=== PATIENT | female | born 1955 | race Caucasian/White ===

== ENCOUNTER → 2018-06-02 | Outpatient (CLI) | payer BC ==
[~2018-06-02] MED LIST: ACIPHEX20 MG PO; AMITRIPTYLINE H10 MG PO; AMLODIPINE BESYL5 MG PO; ARTHROTEC EC 71 EACH PO; ATIVAN0.5 MG PO; CARAFATE1 GM PO; CRESTOR10 MG PO; CYMBALTA30 MG PO; DEPAKOTE PO; DILTIAZEM 24HR120 MG PO; ELAVIL PO; HYDROCODON-ACE1 EA12 PO; IMITREX25 MG PO; METOPROLOL TART25 MG PO; NEURONTIN300 MG PO; NORCO 7.5-3251 EACH PO; PANTOPRAZOLE SO40 MG PO; PATANASE30.5 GM; RANITIDINE HCL150 MG PO; RELPAX40 MG PO; SEROQUEL200 MG PO; TRAZODONE HCL150 MG PO; TREXIMET 85-501 EACH PO; TRIZANIDINE PO; ULTRAM 50MG50 MG PO; ZETONNA6.1 GM PO; ZOFRAN8 MG PO; ZYRTEC10 M3 PO; [UNRECOGNIZED DRUG - OTHER]; [UNRECOGNIZED DRUG - REMARK]
--- NOTE | 2018-06-02 16:32 | Diagnostic Imaging Report ---
EXAM: FL BARIUM ENEMA DOUBLE CONTRAST INDICATION: Epigastric pain, colonoscopy performed however could not visualize proximal colon. COMPARISON: None available. 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 BARIUM ENEMA: The rectum was cannulated and double contrast barium and air administration performed. Exam is substantially limited due to patient inability to tolerate satisfactory contrast injection and air injection. The ascending colon is not well opacified. The proximal ascending colon and cecum is not visualized. The sigmoid colon is redundant and incompletely evaluated. There is sigmoid and descending colonic diverticulosis as well as scattered diverticulosis in the distal ascending colon. There is a normal caliber visualized colon. No definite mucosal abnormality in the visualized ascending, transverse, or descending colon. No mass is visualized. Per patient preference, the tube was removed prior to procedural completion. Fluoroscopy Time: 2.2 minutes Radiation dose: 176.9 mgy DAP IMPRESSION: Limited double contrast barium enema due to patient unable to tolerate colonic distension with contrast and air. No definite mucosal abnormality or mass is seen. However, given the incomplete evaluation of the ascending colon on colonoscopy and barium contrast study, a CT colonography may be considered for further evaluation. Signed by: Dr. Georgie Negrete MD on 06/02/2018 4:28 PM
== END ==
LOC: DX 11:21
PROVIDERS: ATTEND Internal Medicine Gastroenterology
DX: R10.13 Epigastric pain (principal); R12 Heartburn; R11.0 Nausea; R13.19 Other dysphagia; K59.00 Constipation, unspecified; Z12.11 Encounter for screening for malignant neoplasm of colon; Z86.010 Personal history of colon polyps
CPT/HCPCS: 74280

== ENCOUNTER 2018-07-18 17:01 | Emergency (ER) | payer BC ==
[~2018-07-18] VITALS: Ht 162.6 cm; Wt 63.0 kg
--- OUTSIDE RECORDS SUMMARY | 2018-07-18 17:04 | XMS REPORT ---
Author Author Rudy Robins Organization [employer] Address Unknown Phone Unavailable Care Team Providers Care Child Life Specialist Name Role Phone Rudy Robins CP Unavailable Allergies, Adverse Reactions, Alerts Substance Reaction Event Type Codeine itchy Drug Allergy Encounters Encounter Location Date Unknown Rudy Robins MD [place] Mar 11, 2014 Problems Problem Type Condition ICD-9 Code Onset Dates Condition Status Assessment Palpitations 785.1 Active Assessment Chest Pain 786.51 Active Assessment Tachycardia 785.0 Active Problem Tachycardia 785.0 Active Problem Palpitations 785.1 Active Problem Chest Pain 786.51 Active Problem GERD (gastroesophageal reflux disease) 530.81 Active Problem Anxiety 300.00 Active Problem Undiagnosed cardiac murmurs 785.2 Active Problem Benign hypertensive heart disease 402.10 Active Assessment Anxiety 300.00 Active Assessment GERD (gastroesophageal reflux disease) 530.81 Active Assessment Benign hypertensive heart disease 402.10 Active Assessment Undiagnosed cardiac murmurs 785.2 Active Medications Medication Code System Code Instructions Start Date End Date Status Dosage Amlodipine Besylate [facility] [address]-81 5 MG Orally Once a day Active 1 tablet Duloxetine HCl [facility] [address]-24 30 mg Orally Once a day Active 1 capsule Quetiapine Fumarate [facility] [address]-79 200 MG Orally Once a day Active 1 tablet at bedtime Sucralfate [facility] [address]-77 1 GM Orally Four times a day Active 1 tablet on an empty stomach Gabapentin [facility] [address]-07 300 MG Orally once a day Active 1 capsule Trazodone HCl [facility] [address]-85 150 MG Orally Once a day Active 1 tablet at bedtime Lorazepam [facility] [address]-42 0.5 MG Orally Twice a day Active 1 tablet at bedtime as needed Crestor [facility] [address]-86 10 MG Orally Once a day Active 1 tablet Rabeprazole Sodium [facility] [address]-38 20 mg Orally Twice a day Active 1 tablet Social History Social History Element Qualifiers Date Reported Smoking . Status Never Smoker Mar 30, 2014 Alcohol Use No. Mar 30, 2014 Alcohol Screening: No. Did you have a drink containing alcohol in the past year?: No, Points: 0, Interpretation: Negative Mar 30, 2014 Marital Status: . Mar 30, 2014 Do you drink alcohol? No. 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
--- OUTSIDE RECORDS SUMMARY | 2018-07-18 17:04 | XMS REPORT | Continuity of Care Document ---
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 Active Problem 12/14/2016 Rudy Robins MYLES Active Problem 12/14/2016 Rudy Robins GERD Active Problem 12/14/2016 Rudy Robins Anxiety Active Problem 12/14/2016 Rudy Robins Benign hypertensive heart disease Active Problem 12/14/2016 Rudy Robins Palpitations Active Diagnosis 04/03/2014 Rudy Robins Chest Pain Active Diagnosis 04/03/2014 Rudy Robins Tachycardia Active Diagnosis 04/03/2014 Rudy Robins GERD Active Problem 04/03/2014 Rudy Robins Anxiety Active Problem 04/03/2014 Rudy Robins Undiagnosed cardiac murmurs Active Problem 04/03/2014 Rudy Robins Benign hypertensive heart disease Active Problem 04/03/2014 Rudy Robins Medications Medication Details Route Status Patient Instructions Ordering Provider Order Date Source Diltiazem HCl ER 1 capsule Orally Active 120 MG Orally Once a day Julienne 02/21/2016 Rudy Robins Amlodipine Besylate 1 tablet Orally Active 5 MG Orally Once a day Julienne Robins Duloxetine HCl 1 capsule Orally Active 30 mg Orally Once a day Julienne Robins Quetiapine Fumarate 1 tablet at bedtime Orally Active 200 MG Orally Once a day Julienne Robins Sucralfate 1 tablet on an empty stomach Orally Active 1 GM Orally Four times a day Julienne Robins Gabapentin 1 capsule Orally Active 300 MG Orally once a day Julienne Robins Trazodone HCl 1 tablet at bedtime Orally Active 150 MG Orally Once a day Julienne Robins Lorazepam 1 tablet at bedtime as needed Orally Active 0.5 MG Orally Twice a day Julienne Robins Crestor 1 tablet Orally Active 10 MG Orally Once a day Julienne Robins Rabeprazole Sodium 1 tablet Orally Active 20 mg Orally Twice a day Julienne Robins Allergies, Adverse Reactions, Alerts Substance Category Reaction Severity Reaction type Status Date Reported Comments Source Codeine Adverse Reaction itchy Adverse Reaction Active 03/11/2014 Rudy Robins aspirin Assertion Drug allergy Active [facility] Celebrex Assertion Drug allergy Active [facility] codeine Assertion Drug allergy Active [facility] ibuprofen Assertion Drug allergy Active [facility] Naprosyn Assertion Drug allergy Active [facility] Vioxx Assertion Drug allergy Active [facility] Immunizations Immunization Date Given Site Status Last Updated Comments Source Results Order Name Results Value Reference Range Date Interpretation Comments Source Brain wo contrast MRI Brain wo contrast MRI Clinical Indication: - G43.719 Chronic migraine without aura, intractable, without status migrainosus Comparison: CT head dated 09/24/2016 TECHNIQUE: Multiplanar noncontrast enhanced MRI of the brain is performed on a 1.5 Heidi magnet. Contrast: None. FINDINGS: BRAIN PARENCHYMA: Stable appearance of a small to moderate size region of gliosis and encephalomalacia in the right parietal temporal lobe. Periventricular and deep white matter T2/FLAIR hyperintensity is noted, consistent with sequelae of chronic microvascular ischemia. There is no mass effect or midline shift. There is no extra-axial fluid collection or intraparenchymal hemorrhage. The corpus callosum appears normal. There is no diffusion weighted imaging or ADC map abnormality to suggest acute/subacute ischemia. There is no magnetic susceptibility to suggest recent or remote intracranial hemorrhage. CEREBELLOPONTINE REGIONS AND SKULL BASE: The cerebellopontine angles appear unremarkable. The skull base, craniocervical junction, and brainstem are normal. The optic chiasm is normal. The sellar and pineal regions are unremarkable. VENTRICLES: The ventricles are normal in size and configuration. The basilar cisterns are normal. VESSELS: The venous sinuses are grossly unremarkable. The expected intracranial flow voids are present. ORBITS, VISUALIZED PARANASAL SINUSES AND MASTOIDS: Status post bilateral lens replacement. The visualized orbits and paranasal sinuses are unremarkable. The mastoid air cells are clear. IMPRESSION: 1. No acute intracranial abnormalities. 2. Compared to 2013, stable small to moderate size region of gliosis and encephalomalacia in the right parietotemporal lobe. 3. Sequelae of mild chronic microvascular ischemia. SL: OTONEIL 05/05/2018 - - Read by: Mariano Zelaya MD Dictated Date/time: 05/05/18 11:59 Electronically Signed by: Mariano Zelaya MD 05/05/18 12:04 FINAL REPORT [facility] Foot 2 views DX Foot 2 views DX Patient Name: JACINDA CARD. : 1955; Age: 61 years y/o; Female. MR: [id number]. Ordering Physician: Apryl Linder MD. Left foot 3 views. HISTORY: Left foot injury with pain. COMPARISON: None. FINDINGS: Frontal, oblique and lateral views of the left foot was performed. [id number] 1st MTP joint space narrowing noted with minimal spurring. Varying degrees of interphalangeal joint space narrowing also noted involving the 2nd through 5th toes. No fracture or dislocation. Soft tissue is unremarkable. No ankle joint effusion. IMPRESSION: No evidence of left foot fracture or dislocation. Degenerative changes as described. SL: [id number] 08/07/2016 - - Read by: Víctor Rivas MD Dictated Date/time: 08/07/16 16:51 Electronically Signed by: Víctor Rivas MD 08/07/16 16:53 FINAL REPORT [facility] wo contrast CT Brain wo contrast CT CT head no contrast. TECHNIQUE: Contiguous transaxial images of the brain were performed without administration of IV contrast. FINDINGS: There is no evidence for parenchymal bleed, extra-axial collections, intracranial masses or midline shift. No displaced fractures of the calvarium or other significant bony abnormality is noted. Small area of encephalomalacia is present in the right parietal lobe suggestive of the previous infarct. No acute infarct is evident. The visualized paranasal sinuses and the mastoids are clear. IMPRESSION: No significant acute brain abnormality is noted. SL:13 09/24/2013 - - Read by: Steven Flores Dictated Date/time: 09/24/13 14:20 Electronically Signed by: Steven Flores MD 09/24/13 14:25 FINAL REPORT [facility] Sinus wo contrast CT Sinus wo contrast CT CT sinuses without contrast: COMPARISON: No priors Technique: Contiguous transaxial images were obtained through the paranasal sinuses without IV contrast. Coronal 2.5 mm images were generated from axial data. FINDINGS: Mild mucosal thickening is present at the base of the base of both maxillary sinuses. No air-fluid level is present in either maxillary sinus. Question small mucous retention cyst, base of right maxillary sinus anteriorly. Postoperative changes related to bilateral antrostomies are visualized. Both antrostomies are widely open. Remainder of the paranasal sinuses, including the frontal, ethmoid air cells, and the sphenoid sinuses are clear. The sphenoethmoidal recesses are patent. There is no significant septal deviation. The visualized portion of the mastoid air cells are clear. IMPRESSION: Mild changes of chronic sinusitis involving the base of both maxillary sinuses. Postsurgical change noted in both maxillary sinuses, as discussed above. Remainder of the paranasal sinuses are clear. SL:13 09/24/2013 - - Read by: Steven Flores Dictated Date/time: 09/24/13 14:36 Electronically Signed by: Steven Flores MD 09/24/13 14:54 FINAL REPORT [facility] Vital Signs Vital Sign Value Date Comments Source Weight 125 03/11/2014 Rudy Robins Height 63 03/11/2014 Rudy Robins Temperature Oral (F) 97.1 F 03/11/2014 Rudy Robins Heart Rate 111 03/11/2014 Rudy O Julienne Diastolic (mm Hg) 76 03/11/2014 Rudy O Julienne Systolic (mm Hg) 120 03/11/2014 Rudy Robins Encounters Location Location Details Encounter Type Encounter Number Reason For Visit Attending Provider ADM Date DC Date Status Source [facility] [id number] _[id number] Hipolito Adams 09/24/2013 09/25/2013 [facility] [id number] Hipolito Adams 12/03/2013 12/03/2013 [facility] Rudy Robins MD PA Unknown [id number] 03/11/2014 03/11/2014 Rudy Robins Outpatient [id number] APRYL LINDER 08/07/2016 Active [facility] Procedures Procedure Code Date Perfomer Comments Source
--- OUTSIDE RECORDS SUMMARY | 2018-07-18 17:04 | XMS REPORT | Summary of Care ---
Author Organization Unknown Address Unknown Phone Unavailable Encounter HQ Jaunntr_miguelina(RENALDO) [id number] Date(s): 12/02/13 - 12/02/13 [facility] [address] Discharge Disposition: Home Physician Attending: Hipolito Adams MD Physician_Referring: Hipolito Adams MD Reason for Visit SPLIT NIGHT-11826 Problem List No data available for this section Allergies, Adverse Reactions, Alerts Substance Reaction Severity Status aspirin Active Celebrex Active codeine Active ibuprofen Active Naprosyn Active Vioxx Active Medications No data available for this section Medications Administered During Your Visit No data available for this section Immunizations No data available for this section Social History Social History Type Response
--- OUTSIDE RECORDS SUMMARY | 2018-07-18 17:04 | XMS REPORT ---
Author Author Rudy Robins Organization [employer] Address Unknown Phone Unavailable Care Team Providers Care Access Lead Name Role Phone Rudy Robins CP Unavailable Allergies No Known Allergies Problems Problem Type Condition Code Onset Dates Condition Status Problem Encounter for pre-operative cardiovascular clearance Z01.810 Active Assessment Palpitation R00.2 Active Problem Allergic rhinitis, unspecified allergic rhinitis type J30.9 Active Problem LVH (left ventricular hypertrophy) due to hypertensive disease I11.9 Active Problem MYLES (dyspnea on exertion) R06.09 Active Problem GERD (gastroesophageal reflux disease) K21.9 Active Problem Anxiety F41.9 Active Problem Palpitation R00.2 Active Problem Benign hypertensive heart disease I11.9 Active Medications Medication Code System Code Instructions Start Date End Date Status Dosage Diltiazem HCl ER [facility] [address]-09 120 MG Orally Once a day February 21, 2016 Active 1 capsule Results No Known Results Summary Purpose [employer]ClinicalWorks Submission
--- OUTSIDE RECORDS SUMMARY | 2018-07-18 17:04 | XMS REPORT | Summary of Care ---
Author Organization Unknown Address Unknown Phone Unavailable Encounter Dates Location Diagnoses [facility]charge [facility]iders [facility] [address] [place], [place] [id number] [place] [address] Reason for Visit STAT; 346.90; COMPLICATED MIGRAINE 473.9; SINUSITIS Problem List No data available for this section Allergies, Adverse Reactions, Alerts Status Substance Reaction Severity Active aspirin Active Celebrex Active codeine Active ibuprofen Active Naprosyn Active Vioxx Medications No data available for this section Medications Administered During Your Visit No data available for this section Immunizations No data available for this section Social History Social History Type Response
[2018-07-18 18:45] LABS: BASOPHILS # (AUTO) 0.1 (0.0-0.1); BASOPHILS % 0.8 % (0.0-1.0); EOSINOPHILS # (AUTO) 0.2 (0.0-0.4); EOSINOPHILS % 2.4 % (0.0-6.0); HEMATOCRIT 43.9 % (34.2-44.1); HEMOGLOBIN 14.1 g/dL (12.0-16.0); LYMPHOCYTES # (AUTO) 2.4 (1.0-3.2); LYMPHOCYTES % 33.9 % (18.0-39.1); MEAN CORPUSCULAR HEMOGLOBIN 29.8 pg (28-32); MEAN CORPUSCULAR HGB CONC 32.1 g/dL (31-35); MEAN CORPUSCULAR VOLUME 92.8 fL (81-99); MONOCYTES # (AUTO) 0.7 (0.2-0.8); MONOCYTES % 10.3 % (4.4-11.3); NEUTROPHILS # (AUTO) 3.8 (2.1-6.9); NEUTROPHILS % 52.5 % (38.7-80.0); PLATELET COUNT 268 x10e3/uL (140-360); RED BLOOD COUNT 4.73 x10e6/uL (3.6-5.1); RED CELL DISTRIBUTION WIDTH 13.1 % (11.7-14.4)
[2018-07-18 19:03] LABS: ALANINE AMINOTRANSFERASE 56 IU/L (0-55); ALBUMIN 4.5 g/dL (3.5-5.0); ALBUMIN/GLOBULIN RATIO 1.5 (0.8-2.0); ALKALINE PHOSPHATASE 69 IU/L (40-150); ANION GAP 17.9 mmol/L (8-16); BLOOD UREA NITROGEN 15 mg/dL (7-26); BUN/CREATININE RATIO 19 (6-25); CALCIUM 9.9 mg/dL (8.4-10.2); CARBON DIOXIDE 24 mmol/L (22-29); CHLORIDE 100 mmol/L (98-107); EST GLOMERULAR FILTRATION RATE > 60 ML/MIN (60-); GLUCOSE 93 mg/dL (74-118); POTASSIUM 3.9 mmol/L (3.5-5.1); SODIUM 138 mmol/L (136-145)
[2018-07-18 19:44] LABS: BACTERIA,URINE MANY /HPF; BILIRUBIN,URINE NEGATIVE (NEGATIVE); CLARITY,URINE SL CLOUDY (CLEAR); COLOR,URINE ORANGE (YELLOW); KETONES,URINE TRACE (NEGATIVE); LEUKOCYTE ESTERASE ,URINE TRACE (NEGATIVE); NITRITE,URINE POSITIVE (NEGATIVE); PROTEIN,URINE DIPSTICK 2+ (NEGATIVE); URINE UROBILINOGEN 4 mg/dL (0.2 - 1)
[2018-07-18] MEDS ORDERED: KETOROLAC TROMETHAMINE 30 MG/ML VIAL IV STA (22:46)
[2018-07-18 23:19] VITALS: BP 172/84
== END 2018-07-18 23:25 | disposition home or self-care (01) ==
LOC: ER 17:01
DX: R10.11 Right upper quadrant pain (principal); R11.0 Nausea; K80.20 Calculus of gallbladder without cholecystitis without obstruction; F17.210 Nicotine dependence, cigarettes, uncomplicated
CPT/HCPCS: 36415; 80053; 81001; 85025; 93005; 99283; J1885

== ENCOUNTER 2018-07-27 09:27 | Emergency (ER) | payer BC ==
[~2018-07-27] VITALS: Ht 162.6 cm; Wt 63.0 kg
== END 2018-07-27 10:18 | disposition home or self-care (01) ==
LOC: FSED 09:27
DX: R50.9 Fever, unspecified (principal); R05 Cough; J02.0 Streptococcal pharyngitis
CPT/HCPCS: 87400; 99283

== ENCOUNTER → 2018-09-26 | Day surgery (SDC) | payer BC ==
[2018-09-19 14:18] LABS: BASOPHILS # (AUTO) 0.1 (0.0-0.1); BASOPHILS % 1.1 % (0.0-1.0); EOSINOPHILS # (AUTO) 0.2 (0.0-0.4); EOSINOPHILS % 3.6 % (0.0-6.0); HEMATOCRIT 39.2 % (34.2-44.1); HEMOGLOBIN 12.7 g/dL (12.0-16.0); LYMPHOCYTES # (AUTO) 2.4 (1.0-3.2); LYMPHOCYTES % 39.4 % (18.0-39.1); MEAN CORPUSCULAR HEMOGLOBIN 31.1 pg (28-32); MEAN CORPUSCULAR HGB CONC 32.4 g/dL (31-35); MEAN CORPUSCULAR VOLUME 95.8 fL (81-99); MONOCYTES # (AUTO) 0.6 (0.2-0.8); MONOCYTES % 10.2 % (4.4-11.3); NEUTROPHILS # (AUTO) 2.8 (2.1-6.9); NEUTROPHILS % 45.5 % (38.7-80.0); PLATELET COUNT 229 x10e3/uL (140-360); RED BLOOD COUNT 4.09 x10e6/uL (3.6-5.1); RED CELL DISTRIBUTION WIDTH 12.9 % (11.7-14.4)
[2018-09-19 14:23] LABS: CLARITY,URINE CLEAR (CLEAR); COLOR,URINE YELLOW (YELLOW)
[2018-09-19 14:24] LABS: BILIRUBIN,URINE NEGATIVE (NEGATIVE); KETONES,URINE NEGATIVE (NEGATIVE); LEUKOCYTE ESTERASE ,URINE NEGATIVE (NEGATIVE); NITRITE,URINE NEGATIVE (NEGATIVE); PROTEIN,URINE DIPSTICK TRACE (NEGATIVE); URINE UROBILINOGEN 0.2 mg/dL (0.2 - 1)
[2018-09-19 14:46] LABS: ALANINE AMINOTRANSFERASE 57 IU/L (0-55); ALBUMIN/GLOBULIN RATIO 1.4 (0.8-2.0); ALKALINE PHOSPHATASE 82 IU/L (40-150); BLOOD UREA NITROGEN 11 mg/dL (7-26); BUN/CREATININE RATIO 16 (6-25); CALCIUM 9.7 mg/dL (8.4-10.2); CARBON DIOXIDE 27 mmol/L (22-29); CHLORIDE 102 mmol/L (98-107); CREATININE, SERUM 0.69 mg/dL (0.57-1.11); EST GLOMERULAR FILTRATION RATE > 60 ML/MIN (60-); GLUCOSE 96 mg/dL (74-118); SODIUM 138 mmol/L (136-145)
[~2018-09-26] MED LIST changes: +AIMOVIG IJ; +BUPIVACAINE 0.25%/EPI 30ML SDV INJ ONE; +CORLANOR PO; +DEXAMETHASONE SOD PHOS INJ 4 MG/ML VIAL ONE; +Diltiazem Hcl PO; +FAMOTIDINE 20 MG/2 ML VIAL IV ONE; +FENTANYL CITRATE/PF 100MCG/2 ML INJ ONE; +HYDROCODONE/APAP 7.5MG-325MG 1 EA TAB ONE; +LIDOCAINE HCL (LTA) 4 ML SOLN ONE; +LIDOCAINE HCL 2% LOCAL INJ 5 ML SDV VIAL INJ ONE; +MIDAZOLAM HCL 2 MG/2 ML VIAL ONE; +ONDANSETRON HCL INJ 2MG/ML 2ML 2 MG/ML VIAL ONE; +PRILOSEC; +PROPOFOL IV EMULSION 10 MG/ML 20 ML VIAL ONE; +SCOPOLAMINE 1.5 MG PATCH ONE; +SEVOFLURANE INHAL SOLN 250 ML PEN BTL ONE
--- OUTSIDE RECORDS SUMMARY | 2018-09-26 11:14 | XMS REPORT ---
Author Author Rudy Robins Organization [employer] Address Unknown Phone Unavailable Care Team Providers Care Newspaper Editor Name Role Phone Rudy Robins CP Unavailable Allergies No Known Allergies Problems Problem Type Condition Code Onset Dates Condition Status Problem Palpitation R00.2 Active Problem Encounter for pre-operative cardiovascular clearance Z01.810 Active Problem Benign hypertensive heart disease I11.9 Active Problem Nonrheumatic tricuspid (valve) insufficiency I36.1 Active Problem Acquired insufficiency of aortic valve I35.1 Active Problem Anginal equivalent I20.8 Active Problem Allergic rhinitis, unspecified allergic rhinitis type J30.9 Active Problem MYLES (dyspnea on exertion) R06.09 Active Problem Non-rheumatic mitral regurgitation I34.0 Active Problem Inappropriate sinus tachycardia R00.0 Active Problem GERD (gastroesophageal reflux disease) K21.9 Active Problem Anxiety F41.9 Active Assessment Inappropriate sinus tachycardia R00.0 Active Problem LVH (left ventricular hypertrophy) due to hypertensive disease I11.9 Active Medications Medication Code System Code Instructions Start Date End Date Status Dosage Corlanor [facility] 49896696289 5 MG Orally Twice a day Active 1 tablet with meals Results No Known Results Summary Purpose eClinicalWorks Submission
--- OUTSIDE RECORDS SUMMARY | 2018-09-26 11:14 | XMS REPORT ---
Author Author [facility] Address Unknown Phone Unavailable Care Team Providers Care Roving Carrier Name Role Phone ARIEL CHAKRABORTY Unavailable Unavailable RUI BULL Unavailable Unavailable Payers Payer Name Policy Type Policy Number Effective Date Expiration Date Problems This patient has no known problems. Allergies, Adverse Reactions, Alerts Allergy Name Allergy Type Status Severity Reaction(s) Onset Date Inactive Date Treating Clinician Comments codeine DA Active CT 2018-07-24 00:00:[address] 2013-05-11 00:00:00 Medications This patient has no known medications. Results Test Description Test Time Test Comments Text Results Atomic Results Result Comments BARIUM ENEMA W/AIR C 2018-06-02 16:07:00 [place] [address] Patient Name: JACINDA GALICIA MR #: [id number] : 1955 Age/Sex: 63/F Req #: [id number] Adm Physician: Ordered by: ARIEL CHAKRABORTY MD Report #: [id number] Location: DX Room/Bed: Procedure: [id number] DX/BARIUM ENEMA W/AIR C Exam Date: 06/02/18 Exam Time: 1230 REPORT STATUS: Signed EXAM: FL BARIUM ENEMA DOUBLE CONTRAST INDICATION: Epigastric pain, colonoscopy performed however could not visualize proximal colon. COMPARISON: None available. 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 BARIUM ENEMA: The rectum was cannulated and double contrast barium and air administration performed. Exam is substantially limited due to patient inability to tolerate satisfactory contrast injection and air injection. The ascending colon is not well opacified. The proximal ascending colon and cecum is not visualized. The sigmoid colon is redundant and incompletely evaluated. There is sigmoid and descending colonic diverticulosis as well as scattered diverticulosis in the distal ascending colon. There is a normal caliber visualized colon. No definite mucosal abnormality in the visualized ascending, transverse, or descending colon. No mass is visualized. Per patient preference, the tube was removed prior to procedural completion. Fluoroscopy Time: 2.2 minutes Radiation dose: 176.9 mgy DAP IMPRESSION: Limited double contrast barium enema due to patient unable to tolerate colonic distension with contrast and air. No definite mucosal abnormality or mass is seen. However, given the incomplete evaluation of the ascending colon on colonoscopy and barium contrast study, a CT colonography may be considered for further evaluation. Signed by: Dr. Joe Smith MD on 06/02/2018 4:28 PM Dictated By: JOE SMITH MD 27 Transcribed By: ARYAN on 06/02/188 COPY TO: ARIEL CHAKRABORTY MD CT ORBIT/SELLA/PF WO [place] [address] Patient Name: JACINDA GALICIA MR #: [id number] : 1955 Age/Sex: 62/F Req #: [id number] Adm Physician: Ordered by: RUI BULL MD Report #: [id number] [facility]: [facility] Room/Bed: Procedure: [id number] CT/CT ORBIT/SELLA/PF WO Exam Date: 06/04/17 Exam Time: 1208 REPORT STATUS: Signed History:Vitreous degeneration. Check for thyroid tissues. Comparison studies:None Technique: Axial images were obtained through the orbits without contrast. Coronal and sagittal images reconstructed from the axial data. Intravenous contrast: None. Findings: Soft tissues: No abnormalities. Bones: No abnormalities. Globes: Bilateral cataract surgery changes. No other abnormality seen. Optic nerves: Normal in size and symmetric. Extraocular muscles: Normal in size and symmetric. Intraconal abnormalities: None. Cavernous sinuses: Grossly symmetric. Sinuses: Clear. Atherosclerotic calcifications of the carotid siphons. IMPRESSION: 1. No orbital abnormalities. No evidence of thyroid ophthalmopathy. Signed by: DR Mike Jose M.D. on 06/04/2017 4:29 PM Dictated By: MIKE MAIER MD [id number] Transcribed By: ARYAN on 06/04/17 4053 COPY TO: RUI BULL MD
--- OUTSIDE RECORDS SUMMARY | 2018-09-26 11:14 | XMS REPORT | Continuity of Care Document ---
Author Author [facility] Interface Address Unknown Phone Unavailable Problems Problem Status Onset Date Classification Date Reported Comments Source G43.719 CHRONIC MIGRAINE WITHOUT AURA, Active 04/23/2018 [facility] SPLIT [id number] Active 10/29/2013 [facility] STAT; 346.90; COMPLICATED MIGRAINE 473.9 Active 09/24/2013 [facility] Palpitation Active Problem 08/22/2018 Rudy Robins Encounter for pre-operative cardiovascular clearance Active Problem 08/22/2018 Rudy Robins Benign hypertensive heart disease Active Problem 08/22/2018 Rudy Robins Nonrheumatic tricuspid insufficiency Active Problem 08/22/2018 Rudy Robins Acquired insufficiency of aortic valve Active Problem 08/22/2018 Rudy Robins Anginal equivalent Active Problem 08/22/2018 Rudy oRbins Allergic rhinitis, unspecified allergic rhinitis type Active Problem 08/22/2018 Rudy Robins MYLES Active Problem 08/22/2018 Rudy Robins Non-rheumatic mitral regurgitation Active Problem 08/22/2018 Rudy Robins Inappropriate sinus tachycardia Active Problem 08/22/2018 Rudy Robins GERD Active Problem 08/22/2018 Rudy Robins Anxiety Active Problem 08/22/2018 Rudy Robins 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 Active Problem 08/22/2018 Rudy Robins Palpitations Active Diagnosis 04/03/2014 Rudy Robins Chest Pain Active Diagnosis 04/03/2014 Rudy Robins Tachycardia Active Diagnosis 04/03/2014 Rudy Robins GERD Active Problem 04/03/2014 Mohsaqib Robins Anxiety Active Problem 04/03/2014 Rudy Robins Undiagnosed cardiac murmurs Active Problem 04/03/2014 Rudy Robins Benign hypertensive heart disease Active Problem 04/03/2014 Rudy Robins Medications Medication Details Route Status Patient Instructions Ordering Provider Order Date Source Diltiazem HCl ER 1 capsule Orally Active 120 MG Orally Once a day Julienne 02/21/2016 Rudy Robins Corlanor 1 tablet with meals Orally Active 5 MG Orally Twice a day [facility] Rudy Robins Amlodipine Besylate 1 tablet Orally Active 5 MG Orally Once a day [facility] Rudy Robins Duloxetine HCl 1 capsule Orally Active 30 mg Orally Once a day [facility] Rudy Robins Quetiapine Fumarate 1 tablet at bedtime Orally Active 200 MG Orally Once a day [facility] Sucralfate 1 tablet on an empty stomach Orally Active 1 GM Orally Four times a day [facility] Gabapentin 1 capsule Orally Active 300 MG Orally once a day [facility] Trazodone HCl 1 tablet at bedtime Orally Active 150 MG Orally Once a day [facility] Rudy Robins Lorazepam 1 tablet at bedtime as needed Orally Active 0.5 MG Orally Twice a day [facility] Rudy Robins Crestor 1 tablet Orally Active 10 MG Orally Once a day [facility] Rabeprazole Sodium 1 tablet Orally Active 20 mg Orally Twice a day [facility] Rudy Robins Allergies, Adverse Reactions, Alerts Substance Category Reaction Severity Reaction type Status Date Reported Comments Source Codeine Adverse Reaction itchy Adverse Reaction Active 03/11/2014 Rudy Robins aspirin Assertion Drug allergy Active [facility] Celebrex Assertion Drug allergy Active [facility] codeine Assertion Drug allergy Active [facility] ibuprofen Assertion Drug allergy Active [facility] Naprosyn Assertion Drug allergy Active [facility] Vioxx Assertion Drug allergy Active [facility] Immunizations Immunization Date Given Site Status [...] 3. Sequelae of mild chronic microvascular ischemia. CELESTINE: OTONIEL 05/05/2018 - - Read by: Mariano Zelaya MD Dictated Date/time: 05/05/18 11:59 Electronically Signed by: Mariano Zelaya MD 05/05/18 12:04 FINAL REPORT [facility] Foot 2 views DX Foot 2 views DX Patient Name: JACINDA CARD. : 1955; Age: 61 years y/o; Female. MR: [id number]. Ordering Physician: Apryl Linder MD. Left foot 3 views. HISTORY: Left foot injury with pain. COMPARISON: None. FINDINGS: Frontal, oblique and lateral views of the left foot was performed. [id number] 1st MTP joint space narrowing noted with minimal spurring. Varying degrees of interphalangeal joint space narrowing also noted involving the 2nd through 5th toes. No fracture or dislocation. Soft tissue is unremarkable. No ankle joint effusion. IMPRESSION: No evidence of left foot fracture or dislocation. Degenerative changes as described. : [id number] 08/07/2016 - - Read by: Víctor Rivas MD Dictated Date/time: 08/07/16 16:51 Electronically Signed by: Víctor Rivas MD 08/07/16 16:53 FINAL REPORT [facility] Brain wo contrast CT Brain wo contrast CT [...] Steven Flores MD 09/24/13 14:25 FINAL REPORT [facility] Sinus wo contrast CT Sinus wo [...] Remainder of the paranasal sinuses are clear. SL:09/24/2013 - - Read by: Steven Flores Dictated Date/time: 09/24/13 14:36 Electronically Signed by: Steven Flores MD 09/24/13 14:54 FINAL REPORT [facility] Vital Signs Vital Sign Value Date Comments Source Weight 125 03/11/2014 Rudy Robins Height 63 03/11/2014 Rudy Robins Temperature Oral (F) 97.1 F 03/11/2014 Rudy Robins Heart Rate 111 03/11/2014 Rudy Robins Diastolic (mm Hg) 76 03/11/2014 Rudy Robins Systolic (mm Hg) 120 03/11/2014 Rudy Robins Encounters Location Location Details Encounter Type Encounter Number Reason For Visit Attending Provider ADM Date DC Date Status Source [facility] Outpatient [id number] _[id number] Hipolito Adams 09/24/2013 09/25/2013 [facility] Outpatient [id number] Hipolito Adams 12/03/2013 12/03/2013 [facility] Rudy Robins MD PA Unknown [id number] 03/11/2014 03/11/2014 Rudy Robins Outpatient [id number] APRYL LINDER 08/07/2016 Active [facility] Procedures Procedure Code Date Perfomer Comments Source
[2018-09-26 16:15] VITALS: BP 146/78
--- NOTE | 2018-09-27 01:00 | Operative Report ---
DATE OF PROCEDURE: 09/26/2018 SURGEON: Derian Helms MD PREOPERATIVE DIAGNOSES: Cholecystitis and cholelithiasis. POSTOPERATIVE DIAGNOSES: Cholecystitis and cholelithiasis. OPERATION PERFORMED: Laparoscopic cholecystectomy. ANESTHESIA: General. COMPLICATIONS: None. ESTIMATED BLOOD LOSS: Minimal. DESCRIPTION OF PROCEDURE: With the patient lying in bed in supine position under good general endotracheal anesthesia, the abdomen was prepped with Betadine solution and draped in the usual manner. A Veress needle was introduced into the right upper quadrant. A pneumoperitoneum was established without any difficulty. A 5 mm trocar was placed in the right subcostal region and a 5 mm videolaparoscope was placed into the intraabdominal cavity. Video laparoscopy at this point revealed some adhesions to the lower abdomen from the patient's previous surgeries, but the subumbilical space was clean. An 11 mm trocar was then placed into the umbilicus under direct vision and a 10 mm video laparoscope was placed into the intraabdominal cavity. Under direct vision, 2 more 5 mm trocars were placed in the right subcostal region. Video laparoscopy at this point revealed the gallbladder to be somewhat distended and to be covered up with adhesions. The right side abdominal exploration appeared to be within normal limits. All the adhesions to the gallbladder were then slowly and carefully taken down. The peritoneum overlying the neck of the gallbladder was then opened and the cystic duct was identified. The cystic duct was followed to its junction with the common duct. The cystic duct was then circumferentially dissected away from the common duct, doubly clipped and divided. The cystic artery was similarly doubly clipped and divided. The gallbladder was then slowly and carefully taken off the liver bed using the cautery scissors and perfect hemostasis was ascertained. The gallbladder was then grasped through the umbilical port and removed without any difficulty. Video laparoscopy was then again carried out. The liver bed was found to be perfectly dry. All the excess fluid was aspirated. The pneumoperitoneum was evacuated and all the trocars were removed under direct vision. The midline fascia of the umbilicus was then closed with a [id number] of 0 Vicryl. All layers were infiltrated on the way out with solution of 0.25% Marcaine. Subcutaneous tissue was approximated with 3-0 Vicryl and the skin was closed with subcuticular 5-0 Vicryl. Benzoin, Steri-Strips, and Band-Aids were applied. The sponge, lap, and needle count was correct. The patient tolerated the procedure well and returned to the recovery room in stable condition. MD MELVINA Armando/KATIE /[id number]
== END | disposition home or self-care (01) ==
LOC: OR 11:12
PROVIDERS: ATTEND Surgery
DX: K80.10 Calculus of gallbladder with chronic cholecystitis without obstruction (principal); K82.8 Other specified diseases of gallbladder; G47.33 Obstructive sleep apnea (adult) (pediatric); I10 Essential (primary) hypertension; K44.9 Diaphragmatic hernia without obstruction or gangrene; K21.9 Gastro-esophageal reflux disease without esophagitis; G43.909 Migraine, unspecified, not intractable, without status migrainosus; F32.9 Major depressive disorder, single episode, unspecified; F41.9 Anxiety disorder, unspecified; Z88.6 Allergy status to analgesic agent; Z01.810 Encounter for preprocedural cardiovascular examination; Z01.812 Encounter for preprocedural laboratory examination
CPT/HCPCS: 36415; 47562; 80053; 81003; 85025; 88304; 93005; C1766; J1100; J2001; J2250; J2405; J2704

== ENCOUNTER 2018-11-14 13:34 | Emergency (ER) | payer BC ==
[~2018-11-14] VITALS: Ht 162.6 cm; Wt 63.0 kg
[~2018-11-14 13:34] MED LIST changes: -BUPIVACAINE 0.25%/EPI 30ML SDV INJ ONE; -DEXAMETHASONE SOD PHOS INJ 4 MG/ML VIAL ONE; -FAMOTIDINE 20 MG/2 ML VIAL IV ONE; -FENTANYL CITRATE/PF 100MCG/2 ML INJ ONE; -HYDROCODONE/APAP 7.5MG-325MG 1 EA TAB ONE; -LIDOCAINE HCL (LTA) 4 ML SOLN ONE; -LIDOCAINE HCL 2% LOCAL INJ 5 ML SDV VIAL INJ ONE; -MIDAZOLAM HCL 2 MG/2 ML VIAL ONE; -ONDANSETRON HCL INJ 2MG/ML 2ML 2 MG/ML VIAL ONE; -PROPOFOL IV EMULSION 10 MG/ML 20 ML VIAL ONE; -SCOPOLAMINE 1.5 MG PATCH ONE; -SEVOFLURANE INHAL SOLN 250 ML PEN BTL ONE
[2018-11-14] MEDS ORDERED: KETOROLAC TROMETHAMINE 30 MG/ML VIAL IV STA (14:10)
[2018-11-14] MEDS ORDERED: DIPHENHYDRAMINE HCL INJ 50 MG/ML VIAL IV STA (14:10)
[2018-11-14] MEDS ORDERED: SODIUM CHLORIDE 0.9% 1000ML 1,000 ML IV SCH (14:15)
[2018-11-14] MEDS ORDERED: DEXAMETHASONE SOD PHOS 10 MG/1 ML VIAL IV ONE (14:15)
[2018-11-14] MEDS ORDERED: METOCLOPRAMIDE HCL 10 MG/2ML VIAL IV ONE (14:15)
--- NOTE | 2018-11-14 15:42 | Diagnostic Imaging Report ---
Exam: Head CT without contrast History: Headache Comparison studies: None Technique: Axial images were obtained from the skull base to the vertex. Coronal and sagittal images reconstructed from the axial data. Dose modulation, iterative reconstruction, and/or weight based adjustment of the mA/kV was utilized to reduce the radiation dose to as low as reasonably achievable. Radiation dose: Total DLP: 969 mGy*cm. Estimated effective dose: DLP x 0.015 Intravenous contrast: None Findings: Scalp: No abnormalities. Bones: No fractures, blastic or lytic lesions. Brain sulci: Mild prominent. Ventricles: Mild compensatory dilatation. No hydrocephalus. Extra-axial spaces: No masses, no fluid collection. Parenchyma: Chronic cortical/subcortical insult centered along the supramarginal gyrus in the right inferior parietal lobe. A few scattered hypodensities in the supratentorial white matter are nonspecific but most compatible with chronic microvascular ischemic changes. Sellar/suprasellar region: No abnormalities. Craniocervical junction: Patent foramen magnum. No Chiari one malformation. Incidental findings: Bilateral lens replacements for previous cataract surgery. IMPRESSION: No acute intracranial abnormalities. Chronic findings: 1. Mild generalized cerebral volume loss. 2. Chronic right inferior parietal infarct. 3. Mild microvascular ischemic changes. Signed by: Dr. Abhilash Dave M.D. on 11/14/2018 3:39 PM
--- NOTE | 2018-11-14 15:52 | NUR ---
STATES NO IMPROVEMENT. PT VSS IMPROVED AND BP BETTER, PT STATES "CAN I GET SOMETHING STRONGER FOR PAIN." MD NOTIFIED NO FURTHER ORDERS.
== END 2018-11-14 16:28 | disposition home or self-care (01) ==
LOC: FSED 13:34
DX: G43.019 Migraine without aura, intractable, without status migrainosus (principal); Z85.3 Personal history of malignant neoplasm of breast
CPT/HCPCS: 70450; 80053; 81003; 85025; 99284; J1100; J1200; J1885; J2765; J7030

== ENCOUNTER 2019-05-15 19:09 | Emergency (ER) | payer BC ==
[~2019-05-15] VITALS: Ht 162.6 cm; Wt 66.7 kg
== END 2019-05-15 20:00 | disposition home or self-care (01) ==
LOC: FSED 19:09
DX: S61.211A Laceration without foreign body of left index finger without damage to nail, initial encounter (principal); W26.0XXA Contact with knife, initial encounter; Y92.000 Kitchen of unspecified non-institutional (private) residence as the place of occurrence of the external cause; I10 Essential (primary) hypertension; F41.9 Anxiety disorder, unspecified; F32.9 Major depressive disorder, single episode, unspecified; Z85.3 Personal history of malignant neoplasm of breast
CPT/HCPCS: 99283

== ENCOUNTER 2021-07-27 16:30 | Emergency (ER) | payer BC ==
[~2021-07-27] VITALS: Ht 160 cm; Wt 68.0 kg
[2021-07-27] MEDS ORDERED: PENICILLIN G BENZATHINE LA 1.2 MU TBX IM STA (18:03)
[2021-07-27] MEDS ORDERED: PENICILLIN G BENZATHINE LA 1.2 MU TBX ONE (18:15)
== END 2021-07-27 18:52 | disposition home or self-care (01) ==
LOC: FSED 16:36
DX: J02.0 Streptococcal pharyngitis (principal); Z88.5 Allergy status to narcotic agent; Z88.8 Allergy status to other drugs, medicaments and biological substances
CPT/HCPCS: 83518; 87400; 99282; J0561

== ENCOUNTER 2021-10-08 14:13 | Emergency (ER) | payer BC ==
[~2021-10-08] VITALS: Ht 165.1 cm; Wt 68.0 kg
[2021-10-08] MEDS ORDERED: ONDANSETRON HCL INJ 2MG/ML 2ML 2 MG/ML VIAL IV STA (14:38)
[2021-10-08] MEDS ORDERED: SODIUM CHLORIDE 0.9% 1000ML 1,000 ML IV STA (14:38)
[2021-10-08] MEDS ORDERED: LORAZEPAM 0.5 MG TAB PO ONE (14:45)
[2021-10-08] MEDS ORDERED: ASPIRIN 325 MG TAB PO ONE (14:45)
[2021-10-08] MEDS ORDERED: ASPIRIN 325 MG TAB ONE (15:05)
[2021-10-08] MEDS ORDERED: LORAZEPAM 0.5 MG TAB ONE (15:06)
[2021-10-08] MEDS ORDERED: SODIUM CHLORIDE 0.9% 1000ML 1,000 ML ONE (15:06)
[2021-10-08] MEDS ORDERED: ONDANSETRON ODT4 MG PO (16:02)
[2021-10-08 16:26] VITALS: BP 142/64
== END 2021-10-08 16:28 | disposition home or self-care (01) ==
LOC: FSED 14:22
DX: I10 Essential (primary) hypertension (principal); E78.5 Hyperlipidemia, unspecified; K58.9 Irritable bowel syndrome, unspecified; F41.9 Anxiety disorder, unspecified; Z85.3 Personal history of malignant neoplasm of breast
CPT/HCPCS: 80053; 81003; 82553; 84484; 85025; 93005; 99284; J7030

== ENCOUNTER 2022-12-05 22:43 | Emergency (ER) | payer BC ==
[~2022-12-05] VITALS: Ht 162.6 cm; Wt 59.0 kg
[~2022-12-05 22:43] MED LIST changes: +ONDANSETRON ODT4 MG PO
[2022-12-05] MEDS ORDERED: SODIUM CHLORIDE 0.9% 1000ML 1,000 ML ONE (23:56)
[2022-12-06] MEDS ORDERED: SODIUM CHLORIDE 0.9% 1000ML 1,000 ML IV SCH
[2022-12-06 00:08] VITALS: BP 98/55; PULSE 58
[2022-12-06] MEDS ORDERED: ONDANSETRON ODT4 MG PO (01:26)
[2022-12-06 01:30] VITALS: O2SAT 99
== END 2022-12-06 01:45 | disposition home or self-care (01) ==
LOC: FSED 22:50
DX: R42 Dizziness and giddiness (principal); I95.1 Orthostatic hypotension; I10 Essential (primary) hypertension; F41.9 Anxiety disorder, unspecified; R63.4 Abnormal weight loss; G89.29 Other chronic pain; E78.5 Hyperlipidemia, unspecified; K21.9 Gastro-esophageal reflux disease without esophagitis; T50.995A Adverse effect of other drugs, medicaments and biological substances, initial encounter; Z85.3 Personal history of malignant neoplasm of breast
CPT/HCPCS: 80048; 80076; 81003; 82553; 84484; 85025; 85379; 87086; 99283; J7030

== ENCOUNTER 2022-12-21 16:40 | Emergency (ER) | payer BC ==
[~2022-12-21] VITALS: Ht 162.6 cm; Wt 61.2 kg
[2022-12-21] MEDS ORDERED: METOPROLOL SUCC50 MG PO (18:09)
[2022-12-21] MEDS ORDERED: LYRICA100 MG PO (18:09)
[2022-12-21] MEDS ORDERED: CAMBIA50 MG (18:09)
[2022-12-21] MEDS ORDERED: HYDROXYZINE HCL25 MG PO (18:09)
[2022-12-21] MEDS ORDERED: LOSARTAN-HCTZ1 EACH (18:09)
[2022-12-21] MEDS ORDERED: PROTONIX20 MG PO (18:09)
[2022-12-21] MEDS ORDERED: RIZATRIPTAN10 MG (18:09)
[2022-12-21] MEDS ORDERED: HYDROCODON-ACE1 EAC9 (18:09)
[2022-12-21 18:35] VITALS: O2SAT 96
== END 2022-12-21 18:35 | disposition home or self-care (01) ==
LOC: FSED 16:50
DX: G45.9 Transient cerebral ischemic attack, unspecified (principal); R47.81 Slurred speech; I10 Essential (primary) hypertension; E78.5 Hyperlipidemia, unspecified; K21.9 Gastro-esophageal reflux disease without esophagitis; Z79.899 Other long term (current) drug therapy
CPT/HCPCS: 70450; 99283

== ENCOUNTER 2024-03-07 19:21 | Inpatient (IN) | payer BC ==
[~2024-03-07] VITALS: Ht 162.6 cm; Wt 64.0 kg
[~2024-03-07 19:21] MED LIST changes: +CAMBIA50 MG; +HYDROCODON-ACE1 EAC9; +HYDROXYZINE HCL25 MG PO; +LOSARTAN-HCTZ1 EACH; +LYRICA100 MG PO; +METOPROLOL SUCC50 MG PO; +PROTONIX20 MG PO; +RIZATRIPTAN10 MG
[2024-03-07 19:39] VITALS: PULSE 95; RESP 18
[2024-03-07] MEDS: SODIUM CHLORIDE 0.9% 1000ML 1,000 ML IV STA (19:44)
[2024-03-07] MEDS: ACETAMINOPHEN 325 MG TAB PO ONE (20:08)
[2024-03-07] MEDS: SODIUM CHLORIDE 0.9% 1000ML 1,000 ML IV ONE (20:09)
[2024-03-07] MEDS ORDERED: IOPAMIDOL 370 MG/ML 100 ML INFUS..BTL INJ ONE (20:12)
[2024-03-07] MEDS: Vancomycin IV 1 GM in SODIUM CHLORIDE 0.9% 250ML 250 ML IV SCH (21:00)
[2024-03-07] MEDS ORDERED: SODIUM CHLORIDE 0.9% 100 ML ONE (21:29)
[2024-03-07] MEDS ORDERED: CEFEPIME 2 GM VIAL ONE (21:29)
[2024-03-07] MEDS: Vancomycin IV 1.25 GM in SODIUM CHLORIDE 0.9% 250ML 250 ML IV SCH (21:30)
[2024-03-07] MEDS: CEFEPIME 2 GM in SODIUM CHLORIDE 0.9% 100 ML IV STA (21:43)
[2024-03-07] MEDS ORDERED: Vancomycin IV 1.25 GM in SODIUM CHLORIDE 0.9% 250ML 250 ML IV ONE (21:45)
[2024-03-07 22:17] LABS: INR 1.15; PROTHROMBIN TIME 15.3 seconds (11.9-14.5)
[2024-03-07 22:18] LABS: PARTIAL THROMBOPLASTIN TIME 28.8 seconds (23.8-35.5)
[2024-03-07] MEDS ORDERED: SODIUM CHLORIDE 0.9% 250ML 250 ML ONE (22:43)
[2024-03-07 22:49] VITALS: TEMP 100.7
[2024-03-07 23:45] VITALS: BP 144/78; PULSE 93; RESP 22; TEMP 100.1; O2SAT 97
[2024-03-08] VITALS (8 sets, daily range): BP systolic 129–151; BP diastolic 60–79; PULSE 93–110; RESP 16–22; TEMP 97.5–102.2; O2SAT 94–99
[2024-03-08] MEDS ORDERED: ZOLMITRIPTAN5 MG PO (00:16)
[2024-03-08] MEDS ORDERED: OXYCOD/APAP (00:16)
[2024-03-08] MEDS ORDERED: PROPRANOLOL HCL60 MG PO (00:16)
[2024-03-08] MEDS ORDERED: QUETIAPINE FUM200 MG PO (00:16)
[2024-03-08] MEDS ORDERED: AJOVY AUTO225 MG/1.5 SUBD (00:16)
[2024-03-08] MEDS ORDERED: LINZESS145 MCG PO (00:16)
[2024-03-08 07:46] LABS: BASOPHILS % 0.2 % (0.0-1.0); EOSINOPHILS % 0.1 % (0.0-6.0); HEMATOCRIT 31.3 % (34.2-44.1); HEMOGLOBIN 9.9 g/dL (12.0-16.0); LYMPHOCYTES # (AUTO) 1.3 (1.0-3.2); LYMPHOCYTES % 6.3 % (18.0-39.1); MEAN CORPUSCULAR HEMOGLOBIN 28.7 pg (28-32); MEAN CORPUSCULAR HGB CONC 31.6 g/dL (31-35); MEAN CORPUSCULAR VOLUME 90.7 fL (81-99); MONOCYTES # (AUTO) 1.6 (0.2-0.8); MONOCYTES % 7.7 % (4.4-11.3); NEUTROPHILS % 84.7 % (38.7-80.0); PLATELET COUNT 421 x10e3/uL (140-360); RED BLOOD COUNT 3.45 x10e6/uL (3.6-5.1); RED CELL DISTRIBUTION WIDTH 12.9 % (11.7-14.4); WHITE BLOOD COUNT 20.08 x10e3/uL (4.8-10.8)
[2024-03-08] MEDS ORDERED: CHLORASEPTIC SPRAY 177 ML BTL MM PRN (08:00)
[2024-03-08 08:17] LABS: ANION GAP 12.8 mmol/L (8-16); CALCIUM 9.3 mg/dL (8.4-10.2); CREATININE, SERUM 0.7 mg/dL (0.57-1.11); POTASSIUM 4.8 mmol/L (3.5-5.1)
[2024-03-08] MEDS: VANCOMYCIN 1.25GM/250ML PREMIX 250 ML IV SCH (10:42)
[2024-03-08] MEDS: SODIUM CHLORIDE 0.9% 250ML 250 ML ONE (12:12)
[2024-03-08] MEDS: DIPHENHYDRAMINE HCL INJ 50 MG/ML VIAL IV ONE (13:03)
[2024-03-08] MEDS: LORATADINE 10 MG TAB PO SCH (13:03)
[2024-03-08] MEDS ORDERED: IOPAMIDOL 370 MG/ML 100 ML INFUS..BTL INJ ONE (13:54)
[2024-03-08] MEDS: Clindamycin INJ 300 MG/50 ML 50 ML IV SCH (14:16)
[2024-03-08] MEDS: PREGABALIN 50 MG CAP PO SCH (14:18)
[2024-03-08] MEDS: BENZONATATE 100 MG CAP PO SCH (14:18)
[2024-03-08] MEDS ORDERED: GUAIFENESIN/DEXTROMETHORPHAN LIQD 5 ML UDC PO PRN (16:30)
[2024-03-08] MEDS ORDERED: GUAIFENESIN/CODEINE 5 ML LIQD PO PRN (16:30)
[2024-03-08] MEDS: DULOXETINE HCL 30 MG DELAYED RELEASE PO SCH (17:14)
[2024-03-08] MEDS: ONDANSETRON HCL INJ 2MG/ML 2ML 2 MG/ML VIAL IV PRN (18:02)
[2024-03-08] MEDS: ACETAMINOPHEN 325 MG TAB PO PRN (18:03)
[2024-03-08] MEDS: QUETIAPINE FUMARATE 100 MG TAB PO SCH (21:11)
[2024-03-08] MEDS: NYSTATIN SUSPENSION 5 ML UDC PO SCH (21:12)
[2024-03-09] VITALS (10 sets, daily range): BP systolic 108–130; BP diastolic 63–94; PULSE 100–120; RESP 16–21; TEMP 98.1–100; O2SAT 91–95
[2024-03-09 05:38] LABS: BASOPHILS # (AUTO) 0.1 (0.0-0.1); BASOPHILS % 0.3 % (0.0-1.0); EOSINOPHILS # (AUTO) 0.1 (0.0-0.4); EOSINOPHILS % 0.4 % (0.0-6.0); HEMATOCRIT 28.5 % (34.2-44.1); HEMOGLOBIN 9.2 g/dL (12.0-16.0); LYMPHOCYTES # (AUTO) 1.6 (1.0-3.2); LYMPHOCYTES % 9.3 % (18.0-39.1); MEAN CORPUSCULAR HEMOGLOBIN 28.8 pg (28-32); MEAN CORPUSCULAR HGB CONC 32.3 g/dL (31-35); MEAN CORPUSCULAR VOLUME 89.3 fL (81-99); MONOCYTES # (AUTO) 1.4 (0.2-0.8); MONOCYTES % 8.2 % (4.4-11.3); NEUTROPHILS # (AUTO) 14.1 (2.1-6.9); NEUTROPHILS % 80.9 % (38.7-80.0); PLATELET COUNT 420 x10e3/uL (140-360); RED BLOOD COUNT 3.19 x10e6/uL (3.6-5.1); RED CELL DISTRIBUTION WIDTH 13.1 % (11.7-14.4); WHITE BLOOD COUNT 17.48 x10e3/uL (4.8-10.8)
[2024-03-09 06:09] LABS: ANION GAP 14.9 mmol/L (8-16); CREATININE, SERUM 0.73 mg/dL (0.57-1.11); POTASSIUM 3.9 mmol/L (3.5-5.1)
[2024-03-09] MEDS: AMITRIPTYLINE HCL 10 MG TAB PO SCH (08:33)
[2024-03-09] MEDS: SIMVASTATIN 20 MG TAB PO SCH (08:33)
[2024-03-09] MEDS: LINACLOTIDE 145 MCG CAPSULE PO SCH (08:34)
[2024-03-09] MEDS: PANTOPRAZOLE SOD 40 MG TABEC PO SCH (08:34)
[2024-03-09] MEDS: SENNOSIDES 8.6 MG TAB PO SCH (10:08)
[2024-03-09] MEDS: MAGNESIUM HYDROXIDE 30 ML UDC PO SCH (10:08)
[2024-03-09] MEDS: NYSTATIN SUSPENSION 5 ML UDC PO SCH (12:02)
[2024-03-09] MEDS: CLINDAMYCIN PHOS 900MG/ 50ML 50 ML IV SCH (14:38)
[2024-03-09] MEDS: ALBUTEROL SULF 0.083% NEB SOLN 3 ML NEB NEB SCH (14:43)
[2024-03-09] MEDS: CEFEPIME 2 GM in SODIUM CHLORIDE 0.9% 100 ML IV SCH (20:20)
[2024-03-09] MEDS: QUETIAPINE FUMARATE 100 MG TAB PO SCH (20:22)
[2024-03-09] MEDS ORDERED: HEPARIN SOD (PORCINE) 5,000 UNIT/ML VIAL SC SCH (21:00)
[2024-03-09] MEDS: LORAZEPAM 0.5 MG TAB PO PRN (21:12)
[2024-03-10] VITALS (11 sets, daily range): BP systolic 106–145; BP diastolic 50–70; PULSE 102–115; RESP 16–20; TEMP 97.8–99.7; O2SAT 93–98
[2024-03-10 05:35] LABS: BASOPHILS % 0.3 % (0.0-1.0); EOSINOPHILS # (AUTO) 0.1 (0.0-0.4); HEMATOCRIT 29.1 % (34.2-44.1); HEMOGLOBIN 9.2 g/dL (12.0-16.0); LYMPHOCYTES # (AUTO) 1.5 (1.0-3.2); MEAN CORPUSCULAR HEMOGLOBIN 28.7 pg (28-32); MEAN CORPUSCULAR HGB CONC 31.6 g/dL (31-35); MEAN CORPUSCULAR VOLUME 90.7 fL (81-99); MONOCYTES # (AUTO) 1.1 (0.2-0.8); MONOCYTES % 9.1 % (4.4-11.3); NEUTROPHILS # (AUTO) 8.9 (2.1-6.9); NEUTROPHILS % 75.8 % (38.7-80.0); PLATELET COUNT 396 x10e3/uL (140-360); RED BLOOD COUNT 3.21 x10e6/uL (3.6-5.1); RED CELL DISTRIBUTION WIDTH 13.1 % (11.7-14.4)
[2024-03-10 05:59] LABS: ANION GAP 15.6 mmol/L (8-16); CALCIUM 8.6 mg/dL (8.4-10.2); CREATININE, SERUM 0.75 mg/dL (0.57-1.11); POTASSIUM 3.6 mmol/L (3.5-5.1)
[2024-03-10] MEDS ORDERED: LIDOCAINE HCL 4% 50 ML BTL ONE (13:35)
[2024-03-10] MEDS ORDERED: BENZOCAINE/TETRACAINE/BUTAMBEN AERO SPRAY 56 GM CAN ONE (13:51)
[2024-03-10] MEDS ORDERED: PROPOFOL IV EMULSION 10 MG/ML 20 ML VIAL ONE (17:10)
[2024-03-10] MEDS ORDERED: SEVOFLURANE INHAL SOLN 250 ML PEN BTL ONE (17:10)
[2024-03-10] MEDS ORDERED: LIDOCAINE HCL 2% LOCAL INJ 5 ML SDV VIAL INJ ONE (17:10)
[2024-03-11] VITALS (9 sets, daily range): BP systolic 116–150; BP diastolic 63–87; PULSE 85–108; RESP 19–22; TEMP 97.9–99; O2SAT 95–99
[2024-03-11 08:43] LABS: BASOPHILS # (AUTO) 0.1 (0.0-0.1); BASOPHILS % 0.5 % (0.0-1.0); EOSINOPHILS # (AUTO) 0.2 (0.0-0.4); EOSINOPHILS % 1.4 % (0.0-6.0); HEMATOCRIT 29.6 % (34.2-44.1); HEMOGLOBIN 9.4 g/dL (12.0-16.0); LYMPHOCYTES # (AUTO) 1.7 (1.0-3.2); LYMPHOCYTES % 14.7 % (18.0-39.1); MEAN CORPUSCULAR HEMOGLOBIN 28.9 pg (28-32); MEAN CORPUSCULAR HGB CONC 31.8 g/dL (31-35); MEAN CORPUSCULAR VOLUME 91.1 fL (81-99); MONOCYTES # (AUTO) 1.4 (0.2-0.8); MONOCYTES % 12.1 % (4.4-11.3); NEUTROPHILS % 70.8 % (38.7-80.0); PLATELET COUNT 466 x10e3/uL (140-360); RED BLOOD COUNT 3.25 x10e6/uL (3.6-5.1); RED CELL DISTRIBUTION WIDTH 13.2 % (11.7-14.4); WHITE BLOOD COUNT 11.33 x10e3/uL (4.8-10.8)
[2024-03-11] MEDS: ACETAMIN/BUTALBITAL/CAFFEINE TAB PO PRN (15:26)
[2024-03-11] MEDS: GUAIFENESIN/DEXTROMETHORPHAN LIQD 5 ML UDC NG PRN (23:53)
[2024-03-12] VITALS (12 sets, daily range): BP systolic 102–125; BP diastolic 62–72; PULSE 85–116; RESP 18–22; TEMP 98.5–99; O2SAT 94–100
[2024-03-12] MEDS ORDERED: CHLORASEPTIC SPRAY 177 ML BTL MM PRN (10:15)
[2024-03-12] MEDS: CEPACOL SORE THROAT LOZENGES PO PRN (18:53)
[2024-03-13] VITALS: BP 118/68; PULSE 95; RESP 21; TEMP 98.4; O2SAT 97
[2024-03-13 04:00] VITALS: BP 126/85; PULSE 112; RESP 21; TEMP 98.9; O2SAT 96
[2024-03-13 05:43] LABS: BASOPHILS # (AUTO) 0.1 (0.0-0.1); EOSINOPHILS # (AUTO) 0.2 (0.0-0.4); EOSINOPHILS % 2.1 % (0.0-6.0); HEMOGLOBIN 9.9 g/dL (12.0-16.0); LYMPHOCYTES # (AUTO) 1.5 (1.0-3.2); LYMPHOCYTES % 21.1 % (18.0-39.1); MEAN CORPUSCULAR HEMOGLOBIN 28.7 pg (28-32); MEAN CORPUSCULAR HGB CONC 31.9 g/dL (31-35); MEAN CORPUSCULAR VOLUME 89.9 fL (81-99); MONOCYTES % 14.6 % (4.4-11.3); NEUTROPHILS # (AUTO) 4.3 (2.1-6.9); NEUTROPHILS % 60.2 % (38.7-80.0); PLATELET COUNT 492 x10e3/uL (140-360); RED BLOOD COUNT 3.45 x10e6/uL (3.6-5.1); RED CELL DISTRIBUTION WIDTH 13.2 % (11.7-14.4)
[2024-03-13 06:46] LABS: ANION GAP 13.4 mmol/L (8-16); CALCIUM 9.4 mg/dL (8.4-10.2); CREATININE, SERUM 0.74 mg/dL (0.57-1.11); POTASSIUM 4.4 mmol/L (3.5-5.1)
[2024-03-13 07:00] VITALS: PULSE 93; RESP 20; O2SAT 96
[2024-03-13 08:00] VITALS: BP 118/62; PULSE 110; RESP 18; TEMP 98.1; O2SAT 95
[2024-03-13 09:25] VITALS: BP 118/62; PULSE 110; RESP 18; TEMP 98.1; O2SAT 95
[2024-03-13] MEDS ORDERED: CEPACOL SORE THROAT LOZENGES PO PRN (10:30)
[2024-03-13 11:56] VITALS: BP 135/66; PULSE 91; RESP 18; TEMP 98.2; O2SAT 95
[2024-03-13] MEDS ORDERED: LORATADINE10 MG PO (11:58)
[2024-03-13] MEDS ORDERED: BENZONATATE100 MG PO (11:58)
[2024-03-13] MEDS: ONDANSETRON HCL 4 MG ORAL DISINTEGRATING TAB PO PRN (12:35)
== END 2024-03-13 17:38 | disposition home or self-care (01) | DRG 871 ==
LOC: FSED 19:24 → ERHOLD 21:28 → MED/SURG3 23:48
PROVIDERS: ADMIT Internal Medicine; ATTEND Internal Medicine
PROC: 3E0333Z Introduction of Anti-inflammatory into Peripheral Vein, Percutaneous Approach (ICD-10-PCS; 2024-03-07)
PROC: 0BDJ8ZX Extraction of Left Lower Lung Lobe, Via Natural or Artificial Opening Endoscopic, Diagnostic (ICD-10-PCS; principal; 2024-03-10 13:50)
DX: A41.9 Sepsis, unspecified organism (principal); J69.0 Pneumonitis due to inhalation of food and vomit; J85.1 Abscess of lung with pneumonia; B37.0 Candidal stomatitis; R91.8 Other nonspecific abnormal finding of lung field; I10 Essential (primary) hypertension; G43.909 Migraine, unspecified, not intractable, without status migrainosus; F41.9 Anxiety disorder, unspecified; F32.A Depression, unspecified; K21.9 Gastro-esophageal reflux disease without esophagitis; E78.5 Hyperlipidemia, unspecified; Z11.52 Encounter for screening for COVID-19; M19.90 Unspecified osteoarthritis, unspecified site; M06.9 Rheumatoid arthritis, unspecified; R61 Generalized hyperhidrosis; M54.9 Dorsalgia, unspecified; G47.33 Obstructive sleep apnea (adult) (pediatric); L50.9 Urticaria, unspecified; T36.8X5A Adverse effect of other systemic antibiotics, initial encounter; K58.9 Irritable bowel syndrome, unspecified; Z85.3 Personal history of malignant neoplasm of breast; Z90.49 Acquired absence of other specified parts of digestive tract; Z90.710 Acquired absence of both cervix and uterus; Z90.11 Acquired absence of right breast and nipple; Z88.1 Allergy status to other antibiotic agents; Z88.2 Allergy status to sulfonamides; Z88.5 Allergy status to narcotic agent
CPT/HCPCS: 0223U; 31622; 36415; 71045; 71046; 71260; 74177; 74470; 80048; 80053; 81003; 83605; 85025; 85610; 85730; 87040; 87070; 87081; 87102; 87116; 87205; 87206; 87335; 87400; 88112; 88305; 88312; 94640; 94667; 94799; 99252; 99284; J0692; J1200; J2001; J2405; J7030; J7050; Q0162; Q9967

== ENCOUNTER → 2024-05-22 | Outpatient (REF) | payer BC ==
[~2024-05-22] MED LIST changes: +AJOVY AUTO225 MG/1.5 SUBD; +BENZONATATE100 MG PO; +IOPAMIDOL 370 MG/ML 100 ML INFUS..BTL INJ ONE; +LINZESS145 MCG PO; +LORATADINE10 MG PO; +OXYCOD/APAP; +PROPRANOLOL HCL60 MG PO; +QUETIAPINE FUM200 MG PO; +ZOLMITRIPTAN5 MG PO
[2024-05-22 10:46] LABS: CREATININE, SERUM 0.94 mg/dL (0.57-1.11)
== END ==
LOC: CT 09:42
PROVIDERS: ATTEND Internal Medicine
DX: J18.9 Pneumonia, unspecified organism (principal); R91.8 Other nonspecific abnormal finding of lung field
CPT/HCPCS: 36415; 71260; 82565; 84520; Q9967

== ENCOUNTER → 2024-06-30 | Outpatient (REF) | payer BC ==
[~2024-06-30] MED LIST changes: -IOPAMIDOL 370 MG/ML 100 ML INFUS..BTL INJ ONE
== END ==
LOC: EDSTATUS 14:00 → RESP 14:46
PROVIDERS: ATTEND Internal Medicine Pulmonary Disease
DX: R06.09 Other forms of dyspnea (principal)
CPT/HCPCS: 94060; 94727; 94729

== ENCOUNTER 2024-09-30 14:20 | Emergency (ER) | payer BC ==
[~2024-09-30] VITALS: Ht 162.6 cm; Wt 68.0 kg
[2024-09-30 14:33] VITALS: PULSE 98; RESP 18; O2SAT 96
[2024-09-30 15:14] LABS: BASOPHILS # (AUTO) 0.1 (0.0-0.1); BASOPHILS % 0.8 % (0.0-1.0); EOSINOPHILS # (AUTO) 0.1 (0.0-0.4); EOSINOPHILS % 1.8 % (0.0-6.0); HEMATOCRIT 37.1 % (34.2-44.1); HEMOGLOBIN 12.1 g/dL (12.0-16.0); LYMPHOCYTES # (AUTO) 1.9 (1.0-3.2); LYMPHOCYTES % 32.2 % (18.0-39.1); MEAN CORPUSCULAR HEMOGLOBIN 28.7 pg (28-32); MEAN CORPUSCULAR HGB CONC 32.6 g/dL (31-35); MEAN CORPUSCULAR VOLUME 87.9 fL (81-99); MONOCYTES # (AUTO) 0.6 (0.2-0.8); NEUTROPHILS # (AUTO) 3.3 (2.1-6.9); PLATELET COUNT 231 x10e3/uL (140-360); RED BLOOD COUNT 4.22 x10e6/uL (3.6-5.1); RED CELL DISTRIBUTION WIDTH 13.4 % (11.7-14.4); WHITE BLOOD COUNT 6.02 x10e3/uL (4.8-10.8)
[2024-09-30 15:36] LABS: ALANINE AMINOTRANSFERASE 35 IU/L (0-55); ALBUMIN 3.8 g/dL (3.5-5.0); ALBUMIN/GLOBULIN RATIO 1.5 (0.8-2.0); ALKALINE PHOSPHATASE 56 IU/L (40-150); BILIRUBIN,TOTAL 0.3 mg/dL (0.2-1.2); BLOOD UREA NITROGEN 12 mg/dL (7-26); BUN/CREATININE RATIO 14 (6-25); CALCIUM 9.1 mg/dL (8.4-10.2); CARBON DIOXIDE 21 mmol/L (22-29); CHLORIDE 106 mmol/L (98-107); CREATINE KINASE 82 IU/L (29-168); CREATININE, SERUM 0.88 mg/dL (0.57-1.11); EST GLOMERULAR FILTRATION RATE 72 ML/MIN (>=60); GLUCOSE 157 mg/dL (74-118); SODIUM 139 mmol/L (136-145); TOTAL PROTEIN 6.4 g/dL (6.5-8.1)
[2024-09-30 15:44] LABS: TROPONIN I < 0.001 ng/mL (0-0.300)
[2024-09-30] MEDS ORDERED: MECLIZINE HCL12.5 MG PO (17:15)
== END 2024-09-30 17:32 | disposition home or self-care (01) ==
LOC: ER 14:43
DX: R42 Dizziness and giddiness (principal); R03.0 Elevated blood-pressure reading, without diagnosis of hypertension; E78.5 Hyperlipidemia, unspecified; I10 Essential (primary) hypertension; K21.9 Gastro-esophageal reflux disease without esophagitis; F41.9 Anxiety disorder, unspecified; M54.9 Dorsalgia, unspecified; G89.29 Other chronic pain; R94.31 Abnormal electrocardiogram [ECG] [EKG]
CPT/HCPCS: 36415; 70551; 71045; 80053; 82550; 83690; 83880; 84484; 85025; 93005; 99284